=== PATIENT | female | born 1930 | race Caucasian/White ===

== ENCOUNTER 2017-08-08 18:48 | Inpatient (IN) | payer MEDICARE ==
[~2017-08-08] VITALS: Ht 165.1 cm; Wt 72.1 kg
[2017-08-08] MEDS ORDERED: AMLO5TAB2 PO (19:17)
[2017-08-08] MEDS ORDERED: HYDR-4209 PO (19:17)
[2017-08-08] MEDS ORDERED: NYST15CR2 TP (19:17)
[2017-08-08] MEDS ORDERED: ASPI-605 PO (19:17)
[2017-08-08] MEDS ORDERED: METO-302 PO (19:17)
[2017-08-08] MEDS ORDERED: LISINOPRIL PO (19:17)
--- NOTE | 2017-08-08 19:45 | NUR ---
PT HAS BEEN MEDICALLY CLEARED, SBAR REPORT GIVEN TO GRETA MONROE -[facility]. BELONGINGDS LIST ADMIT ORDER, MRSA OREDERED-SENT. PT VIA W/C TO RM 140B.
[2017-08-09 05:39] LABS: *BILIRUBIN,URIN NEGATIVE (NEGATIVE); *BLOOD, URINE NEGATIVE (NEGATIVE); *CLARITY,URINE CLEAR (CLEAR); *COLOR,URINE YELLOW (YELLOW); *KETONES,URINE NEGATIVE (NEGATIVE); *PROTEIN,URINE NEGATIVE (NEGATIVE); *UROBILINOGEN,URINE 0.2 E.U./dl (NORMAL); LEUKOCYTE ESTERASE ,URINE TRACE (NEGATIVE); NITRITE, URINE NEGATIVE (NEGATIVE); UGLUCOSE NEGATIVE (NEGATIVE)
[2017-08-09 05:46] LABS: BACTERIA,URINE FEW /HPF (NONE SEEN); RBC,URINE 0-3 /HPF (0-3); SQUAMOUS EPITHELIAL CELL,UR FEW /HPF (NONE SEEN)
[2017-08-09 07:30] VITALS: BP 128/67
[2017-08-09 15:25] VITALS: BP 118/56
[2017-08-09 20:13] VITALS: BP 155/73
--- NOTE | 2017-08-09 22:00 | NUR ---
LT LOWER LEG ANTERIOR ASPECT WAS CLEANED WITH NS PAT DRY AND APPLIED CLEAN DRESSING. PT TOLERATED WELL.
--- NOTE | 2017-08-10 06:48 | NUR ---
patient refused blood drawn this am.
[2017-08-10 07:30] VITALS: BP 134/66
--- NOTE | 2017-08-10 07:51 | NUR ---
PATIENT SLEPT FOR APPROX 6.0 THROUGH THE NIGHT.
[2017-08-10 15:35] VITALS: BP 115/67
[2017-08-10 15:36] LABS: THYROID STIMULATING HORMONE 3.234 mIU/mL (0.358-3.740)
[2017-08-10 16:00] LABS: ALANINE AMINOTRANSFERASE 15 U/L (14-59); ALKALINE PHOSPHATASE 69 U/L (50-136); ASPARTATE AMINOTRANSFERASE 19 U/L (15-37); BILIRUBIN,TOTAL 0.4 mg/dL (0.2-1.0); CARBON DIOXIDE 28 mmol/L (21-32); CHLORIDE 104 mmol/L (98-107); CHOLESTEROL 215 mg/dL (<200); GLUCOSE 83 mg/dL (74-106); HDL CHOLESTEROL 50 mg/dL (40-60); MAGNESIUM 2.3 mg/dL (1.8-2.4); PHOSPHOROUS 4.4 mg/dL (2.5-4.9); POTASSIUM 4.4 mmol/L (3.5-5.1); TOTAL PROTEIN, SERUM 7.2 g/dL (6.4-8.2); TRIGLYCERIDES 133 MG/DL (30-150); UREA NITROGEN, BLOOD 12 mg/dL (7-18)
[2017-08-10 19:20] LABS: HEMOGLOBIN 13.1 G/DL (12.0-16.0)
[2017-08-10 19:21] LABS: BASOPHILS % (AUTO) 0.6 % (0.0-2.0); EOSINOPHILS % (AUTO) 4.3 % (0.0-7.0); LYMPHOCYTES % (AUTO) 24.6 % (20.5-51.5); MEAN CORPUSCULAR HEMOGLOBIN 31.3 UUG (27.0-31.0); MEAN CORPUSCULAR HGB CONC 33 g/dL (32.0-37.0); MEAN CORPUSCULAR VOLUME 95.2 FL (81.0-99.0); MONOCYTES % (AUTO) 7.4 % (0.0-11.0); NEUTROPHILS % (AUTO) 63.1 % (38.5-71.5); PLATELET COUNT (AUTO) 195 K/UL (150-450)
[2017-08-10 19:22] LABS: EOSINOPHILS # (AUTO) 0.3 K/uL (0.0-0.7); MONOCYTES # (AUTO) 0.6 K/UL (0.1-1.30)
[2017-08-10 20:27] VITALS: BP 109/59
--- NOTE | 2017-08-10 22:20 | NUR ---
GPS: PATIENT C/O INSOMNIA. RESTORIL 7.5 MG PO GIVEN.
--- NOTE | 2017-08-10 23:22 | NUR ---
GPS: PATIENT SLEEPING QUITLEY.PRN EFFECTIVE.
--- NOTE | 2017-08-11 06:29 | NUR ---
GPS: REMAIN UNCOOPERATIVE WITH CARE. SLEPT 07:30 HRS THROUGH THE NIGHT. CONTINUE MONITOR FOR SAFETY.
[2017-08-11 09:56] VITALS: BP 126/50
--- NOTE | 2017-08-11 16:35 | NUR ---
Initial DC Plan: Pt does not currently have a permanent residence. Pt stated she is interested in assisted living. SW will follow up with MD, patient, and patient's friends Rekha [[phone]] and Deepthi [[phone]] to discuss appropriate discharge plans. SW will form a safe and proper discharge plan.
[2017-08-11 17:08] VITALS: BP 133/66
[2017-08-11 20:09] VITALS: BP 111/60
[2017-08-12 08:05] VITALS: BP 117/56
--- NOTE | 2017-08-12 12:00 | NUR ---
Discharge Planning Note: SW faxed placement inquiries to [facility] [fax: [phone]] and [facility] [[phone]]. LILA will follow up with both facilities to see if they will accept pt.
--- NOTE | 2017-08-12 12:40 | NUR ---
WOUND CARE CONSULT: PT PRESENTS AMBULATORY AND CONTINENT. PT STATES FELL AT ANOTHER FACILITY AND SUSTAINED INJURY TO RT LOWER LEG. RT ANTERIOR LOWER LEG NOTED TO HAVE LARGE LUMP WITH OPEN WOUND AND BRUISING. RECOMMENDATIONS MADE FOR WOUND CARE. DISCUSSED WITH NURSING STAFF. RECOMMEND SURGICAL CONSULT. WILL SEE PRN. VELÁSQUEZ IN AGREEMENT WITH PLAN OF CARE. Addendum: 08/12/17 at 1241 by PAULETTE JULIEN RN Amended: Links added.
--- NOTE | 2017-08-12 13:42 | NUR ---
GPS: Nursing Notes: Recommendation by Wound Care Nurse: Staff informed Cecille Majano NP the recommendation by wound care nurse regarding surgical consultation, no further orders were given, continue with wound care treatment, continue with treatment plan.
--- NOTE | 2017-08-12 16:04 | NUR ---
Discharge Planning Note: LILA spoke with Huey at [facility] [ ] who stated they received pt's clinicals. Huey stated that she needs to discuss the case with her learning and development administrator. LILA will follow up with the facility tomorrow.
[2017-08-12 17:16] VITALS: BP_SYST 109; BP_SYST 119; BP_DIAS 65; BP_DIAS 67
--- NOTE | 2017-08-12 19:30 | NUR ---
RECEIVED PATIENT LAYING COMFORTABLY IN BED. NO ACUTE DISTRESS NOTED. A&O X3 BUT FORGETFUL. PATIENT IS CALM AND COOPERATIVE. FALL PRE-CAUTIONS INITIATED. WALKER AT BEDSIDE. SAFETY INITIATED. DRESSING ON THE LEFT LOWER LEG C/D/I. WOUND CONSULT INITIATED. CONTINENT WITH URINE AND BOWEL. WILL CONTINUE TO MONITOR.
[2017-08-12 20:29] VITALS: BP 117/60
--- NOTE | 2017-08-13 06:35 | NUR ---
PATIENT SLEPT 9 HOURS IN MY SHIFT. WAS GIVEN AMBIEN 5 MG. AT 2230 LAST NIGHT ORDERED. PATIENT REMAINS COOPERATIVE. NO ACUTE DISTRESS NOTED. NO BEHAVIORAL PROBLEMS NOTED. DRESSING ON THE LEFT LEG C/D/I. SAFETY AND COMFORT MEASURES MAINTAINED T/O SHIFT. ALL NEEDS MET.
[2017-08-13 07:30] VITALS: BP 121/61
--- NOTE | 2017-08-13 09:12 | NUR ---
REQUESTED FOR PAIN MEDICATIONS FOR C/O PAIN IN HER RIGHT LEG GIVEN ORDERED AND WILL OBSERVE
--- NOTE | 2017-08-13 11:00 | NUR ---
TREATMENT TO WOUND ON HER RIGHT LOWER LEG DONE ORDERED WITH NO BLEEDING MILD DRAINAGE NOTED WRAPPED WITH KIRLIX
--- NOTE | 2017-08-13 11:52 | NUR ---
Discharge Planning Note: LILA faxed placement inquiry to Hugh at [facility] [fax: [phone]]. LILA spoke with Hugh who stated he will have DON review pt's clinicals. Hugh stated that if the facility cannot accept the pt, he will assist in finding her placement at a sister facility. LILA will follow up with Hugh.
--- NOTE | 2017-08-13 12:00 | NUR ---
Discharge Planning Note: LILA faxed placement inquiry to Vernon at [facility] [fax: [phone]; ph: [phone]]. LILA will follow up with facility regarding inquiry.
[2017-08-13 16:00] VITALS: BP 115/60
--- NOTE | 2017-08-13 16:00 | NUR ---
BRAILLE TEACHER FROM [facility] HERE TO SEE PATIENT AND SHE STATED THAT THEY WILL ACCEPT PATIENT AND SHE STATED THAT SHE WILL CALL THE CONVENTIONAL [employer]ORTGAGE UNDERWRITER IN THE MORNING
[2017-08-13 20:38] VITALS: BP 118/75
--- NOTE | 2017-08-13 22:10 | NUR ---
PATIENT RECEIVED IN BED AWAKE. PATIENT PLEASANT UPON APPROACH. PATIENT EASILY AGITATED,AND EASILY IRRITABLE HOWEVER IS REDIRECTABLE. PATIENT COMPLAINT WITH MEDICATION.PATIENT DEMANDING WANTS INSTANT GRATIFICATION. BED IN LOWEST POSITION, BED LOCKED, AND BED ALARM ON WHILE IN BED. NO AGGRESSIVE OR COMBATIVE BEHAVIOR NOTED WILL CONTINUE TO MONITOR.
[2017-08-14 07:30] VITALS: BP 123/61
--- NOTE | 2017-08-14 10:00 | NUR ---
UP AMBULATORY WITH THE FRONT WHEEL WALKER UP AND DOWN THE HALLWAY PARANOID PATIENT REASSURED
--- NOTE | 2017-08-14 12:13 | NUR ---
PATIENT SEEN AND EXAMINED BY DIANELYS DESAI WITH NEW ORDERS AND NOTED
[2017-08-14 15:00] VITALS: BP 111/59
--- NOTE | 2017-08-14 16:53 | NUR ---
EDUCATIONAL AUDIOLOGIST HERE TO DO A CHEST XRAY ORDERED BUT PATIENT REFUSED STATED DOES NOT WANT TO BE EXPOSED TO THE RADIATION ATTEMPTED TO EXPLAIN TO THE PATIENT THAT THE DOCTOR WANTED HER TO DO IT FOR BASE LINE BUT SHE REFUSED WILL INFORM THE DOCTOR.
--- NOTE | 2017-08-14 18:00 | NUR ---
RESTING STATED THAT SHE IS STILL ATTEMPTING TO CALL PATIENTS RIGHT BECAUSE SHE IS BEING HELD HERE AGAINST HER WISHES VERY PARANOID.
[2017-08-14 20:35] VITALS: BP 127/60
[2017-08-15 07:30] VITALS: BP 118/77
[2017-08-15 08:47] VITALS: BP 118/77
--- NOTE | 2017-08-15 10:00 | NUR ---
Discharge Plan: Patient will be discharging to [facility] [[address] [address] [place] [address]; [phone]] via ambulance at 12pm. LILA spoke with Randee at [facility] to confirm discharge plans. Patient is aware and agreeable to discharge plans. SW left a voicemail for patient's friend Rekha Smith [[phone]] to confirm discharge plans. Patient will follow up with Dr. Romero [Manager Call Center] and Dr. Anthony [Psychiatrist].
--- NOTE | 2017-08-15 10:42 | NUR ---
Discharge Planning Note: LILA faxed pt's most recent clinicals to Randee at [facility] [[phone]; fax: [phone]].
--- NOTE | 2017-08-15 13:00 | NUR ---
ATTEMPTED TO DO WOUND CARE AND TAKE PICTURES. PT REFUSED, SAYING "I'M NOT GOING THROUGH THIS AGAIN!" TEACHING REGARDING THE IMPORTANCE OF WOUND CARE DONE, PT STILL REFUSING.
--- NOTE | 2017-08-15 13:15 | NUR ---
PT IS BEING DISCHARGED TO [facility]. DISCHARGE TEACHING IS DONE, PT VERBALIZES UNDERSTANDING. PT REFUSED WOUND CARE AND PICTURES OF THE BRUISES TAKEN ON THE DISCHARGE. PT IS A/O X 2-3. PT IF FORGETFUL, BUT REDIRECTABLE. NO DISTRESS NOTED. ALL BELONGING RETURNED. REPORT WAS CALLED AND GIVEN TO MABEL COLON.
== END 2017-08-15 13:45 | DRG 885 ==
LOC: ER 18:50 → GPS 19:39
PROVIDERS: ADMIT Psychiatry & Neurology Psychiatry; ATTEND Internal Medicine
DX: F29 Unspecified psychosis not due to a substance or known physiological condition (principal); E88.09 Other disorders of plasma-protein metabolism, not elsewhere classified; N39.0 Urinary tract infection, site not specified; Z85.828 Personal history of other malignant neoplasm of skin; W19.XXXA Unspecified fall, initial encounter; I20.9 Angina pectoris, unspecified; E78.5 Hyperlipidemia, unspecified; K59.00 Constipation, unspecified; I10 Essential (primary) hypertension; S81.801A Unspecified open wound, right lower leg, initial encounter; Y93.9 Activity, unspecified; Y92.89 Other specified places as the place of occurrence of the external cause
CPT/HCPCS: 36415; 83735; 84100; 84443; 85025; 87086; A4663